=== PATIENT | female | born 1955 | race Asian ===

== ENCOUNTER → 2024-11-24 | Outpatient (CLI) | payer MEDICARE, OTHER, SELFPAY ==
[2024-11-24 08:48] LABS: Basophils # (Auto) 0.1 Thou/mm3 (0.0-0.2); Basophils % (Auto) 1 % (0-2.5); Eosinophils # (Auto) 0.6 Thou/mm3 (0.0-0.5); Eosinophils % (Auto) 6 % (0-10); Glucose Estimated Average 151 mg/dL (80-131); Hematocrit 36.6 % (36.0-46.0); Hemoglobin 11.2 g/dL (12.0-16.0); Hemoglobin A1C 6.9 % Hgb (4.8-6.0); Immature Granulocytes % (Auto) 0 % (0-0); Immature Granulocytes Auto 0.03 Thou/mm3 (0.00-0.00); Lymphocytes # (Auto) 2.3 Thou/mm3 (1.0-4.8); Lymphocytes % (Auto) 25 % (10-50); Mean Corpuscular HGB Conc 30.6 g/dl (31.0-37.0); Mean Corpuscular Hemoglobin 19.5 pg (25.0-35.0); Mean Corpuscular Volume 64 fL (80-100); Monocytes # (Auto) 0.7 Thou/mm3 (0.0-0.8); Monocytes % (Auto) 7 % (0-12); Neutrophils # (Auto) 5.5 Thou/mm3 (1.8-7.7); Neutrophils % (Auto) 61 % (37-80); Nucleated Red Blood Cell % 0 /100 WBC (0); Platelet Count 321 Thou/mm3 (140-440); RDW Standard Deviation 38.8 fL (36.4-46.3); Red Blood Count 5.75 Miln/mm3 (4.00-5.20); White Blood Count 9.2 Thou/mm3 (3.6-11.0)
[2024-11-24 09:12] LABS: Alanine Aminotransferase 18 U/L (10-49); Albumin, Serum 4.4 gm/dL (3.4-4.8); Albumin/Globulin Ratio 1.7 (1.2-2.2); Alkaline Phosphatase 83 U/L (46-116); Anion Gap 8 (7-16); Aspartate Amino Transferase 20 U/L (0-34); BUN/Creatinine Ratio 30 Ratio (12-20); Bilirubin,Total 0.5 mg/dL (0.3-1.2); Blood Urea Nitrogen 18 mg/dL (9-23); Calcium 9.1 mg/dL (8.3-10.6); Calcium (Corrected) 9.1 mg/dL (8.5-10.1); Carbon Dioxide 28.6 mMol/L (20.0-31.0); Cardiac Risk Estimate 3.1 RATIO (3.7-5.6); Chloride 103 mMol/L (98-107); Cholesterol 149 mg/dL (132-200); Creatinine (Component) 0.6 mg/dL (0.6-1.3); Globulin 2.6 gm/dL (2.3-3.5); Glucose 131 mg/dL (74-106); HDL Cholesterol 48 mg/dL (40-60); LDL Cholesterol,Calculated 79 mg/dL (0-130); Osmolality,Calculated 283 (275-295); Potassium 4.3 mMol/L (3.4-5.1); Sodium 140 mMol/L (136-145); Thyroid Stimulating Hormone 1.62 uIU/mL (0.55-4.78); Triglycerides 111 mg/dL (30-150); eGFR > 60 See Note
[2024-11-24 09:59] LABS: Creatinine MALB Rnd Ur 65 mg/dL (30-125); Microalbumin, Random Urine < 3 mg/L (0-300)
[2024-11-24 11:13] LABS: Path Review Blood Smear Sent to Pathologist
== END | disposition home or self-care (01) ==
PROVIDERS: PCP Family Medicine; Referring Provider Family Medicine; Visit Provider Family Medicine
DX: E11.9 Type 2 diabetes mellitus without complications (principal)
CPT/HCPCS: 36415; 80053; 80061; 82043; 82570; 83036; 84443; 85025

== ENCOUNTER → 2025-02-16 | Outpatient (CLI) | payer MEDICARE, OTHER, SELFPAY ==
[2025-02-16 09:45] LABS: Glucose Estimated Average 163 mg/dL (80-131); Hemoglobin A1C 7.3 % Hgb (4.8-6.0)
== END | disposition home or self-care (01) ==
LOC: COPL 08:45
PROVIDERS: PCP Family Medicine; Referring Provider Family Medicine; Visit Provider Family Medicine
DX: E11.65 Type 2 diabetes mellitus with hyperglycemia (principal)
CPT/HCPCS: 36415; 83036